=== PATIENT | female | born 2000 ===

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

== ENCOUNTER 2024-10-24 23:43 | Emergency (ER) | payer BC, OTHER ==
[~2024-10-24] VITALS: Ht 165.1 cm; Wt 61.2 kg
[2024-10-25 00:12] VITALS: BP 134/91
== END 2024-10-25 00:18 | disposition home or self-care (01) ==
LOC: ER 23:43
DX: Z01.00 Encounter for examination of eyes and vision without abnormal findings (principal); Z79.899 Other long term (current) drug therapy; Z88.0 Allergy status to penicillin; Z88.1 Allergy status to other antibiotic agents
CPT/HCPCS: 99283

== ENCOUNTER → 2025-01-03 | Outpatient (CLI) | payer BC, OTHER ==
[2025-01-06 15:41] LABS: APTIMA MEDIA TYPE MultiTest Swab; C. TRACHOMATIS BY TMA Negative (Negative); N. GONORRHOEAE BY TMA Negative (Negative); SPECIMEN SOURCE Vaginal; T. VAGINALIS BY TMA Negative (Negative)
== END ==
LOC: LAB SHORT 17:07 → LAB 17:07
PROVIDERS: Registered Nurse Community Health
DX: N89.8 Other specified noninflammatory disorders of vagina (principal)
CPT/HCPCS: 87070; 87205; 87491; 87591; 87661